=== PATIENT | male | born 1985 | race Caucasian/White ===

== ENCOUNTER 2024-08-27 08:32 | Emergency (ER) | payer OTHER ==
[~2024-08-27] VITALS: Ht 188 cm; Wt 136.0 kg
[2024-08-27] MEDS ORDERED: iohexol 350MG/ML 100ml bottle IV ONE (09:51)
[2024-08-27] MEDS ORDERED: NO HOME MEDS (10:14)
[2024-08-27 10:20] LABS: BASOPHILS % (AUTO) 0.4 % (0-1); EOSINOPHILS # (AUTO) 0.1 X10'3 (0-0.9); EOSINOPHILS % (AUTO) 1.4 % (0-6); HEMATOCRIT 49.9 % (42.0-52.0); LYMPHOCYTES # (AUTO) 2.3 X10'3 (1.1-4.8); LYMPHOCYTES % (AUTO) 25.9 % (21-51); MEAN CORPUSCULAR HEMOGLOBIN 26.7 PG (27.0-31.0); MEAN CORPUSCULAR HGB CONC 30.1 g/dL (33.0-36.5); MEAN CORPUSCULAR VOLUME 88.8 FL (78-98); MEAN PLATELET VOLUME 8.5 FL (7.4-10.4); MONOCYTES # (AUTO) 0.6 X10'3 (0-0.9); MONOCYTES % (AUTO) 6.9 % (2-12); NEUTROPHILS # (AUTO) 5.7 X10'3 (1.8-7.7); NEUTROPHILS % (AUTO) 65.4 % (42-75); PLATELET COUNT 206 X10'3 (140-440); RED BLOOD COUNT 5.62 X10'6 (4.70-6.10); RED CELL DISTRIBUTION WIDTH 13.8 % (11.5-14.5); WHITE BLOOD COUNT 8.8 X10'3 (4.5-11.0)
[2024-08-27 10:31] LABS: ALBUMIN 4.2 G/DL (3.4-5.0); ANION GAP 6 (8-16); BLOOD UREA NITROGEN 18 MG/DL (7-18); BUN/CREATININE RATIO 16.4 (10.0-20.0); CHLORIDE 105 MMOL/L (99-107); GLUCOSE 101 MG/DL (70-104); POTASSIUM 4.4 MMOL/L (3.5-5.1); SODIUM 140 MMOL/L (135-145); eCRCL 106 ML/MIN; eGFR 75 ML/MIN
[2024-08-27] MEDS: LIDOcaine 1% W/epiNEPHrine 1:100,000 20ml vial IJ ONE (11:15)
[2024-08-27] MEDS ORDERED: AMOX-580 PO (11:37)
[2024-08-27 11:45] VITALS: BP 115/73; PULSE 68; RESP 16; O2SAT 98
[2024-08-27 11:58] VITALS: TEMP 97.1
== END 2024-08-27 11:59 | disposition home or self-care (01) ==
LOC: ER 08:33
DX: K61.1 Rectal abscess (principal); Z79.2 Long term (current) use of antibiotics
CPT/HCPCS: 36415; 46040; 72193; 80048; 85025; 87070; 99285; J3490; Q9967; 87077; 87186; A6407; A6449